=== PATIENT | female | born 1950 | race Caucasian/White ===

== ENCOUNTER 2016-07-27 07:25 | Emergency (ER) | payer OTHER ==
[~2016-07-27] VITALS: Ht 165.1 cm; Wt 100.5 kg
[~2016-07-27 07:25] MED LIST: CIPR500T4 PO; METH4PAK PO; ZOFR4TAB3 PO
[2016-07-27 07:35] VITALS: BP 142/88; PULSE 90; RESP 16; TEMP 97.8; O2SAT 98
[2016-07-27] MEDS ORDERED: PROPARACAINE HCL 0.5% OPHT SOLN 15 ML BTL EACH EYE ONE (08:00)
[2016-07-27] MEDS ORDERED: FLUORESCEIN SOD 1 MG STRIP LEFT EYE ONE (08:00)
[2016-07-27] MEDS ORDERED: VALT500T PO (08:08)
--- NOTE | 2016-07-27 08:10 | PD ---
HPI Chief Complaint: Eye Problems/Injury Time Seen by Provider: 07:36 Travel History International Travel<30 days: No Contact w/Intl Traveler<30days: No Traveled to known affect area: No History of Present Illness HPI 66-year-old female: The patient has had about 2 days of left eyelid pain swelling. 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 She took Valtrex. She thinks she might have a chalazion however wanted to be sure she does not have herpes ophthalmicus. She has been applying hot compresses. He seemed to help a little bit. She noticed minimal purulent discharge along the medial canthus yesterday and this morning. Mild pain is present. PFSH Past Medical History Blood Disorders: No Heart Rhythm Problems: No Cancer: No Cardiac Catheterization: No Cardiovascular Problems: Yes High Cholesterol: Yes Chest Pain: Yes Congestive Heart Failure: No Diabetes: No Endocrine: No Immune Disorder: No Implanted Vascular Access Dvce: Yes Musculoskeletal: Yes (ARTHRITIS) Neurologic: No Psychiatric: No Reproductive: No Respiratory: No Immunizations Current: Yes Menopausal: Yes Past Surgical History Body Medical Devices: BILATERAL HIP- TITANIUM WITH SILICONE LININGS Coronary Artery Bypass Graft: No Joint Replacement: Yes (bilat hip) Other Surgery: Yes (BILATERAL TOTAL HIP ARTHROPLASTY) Social History Alcohol Use: Yes (beer or wine couple times a week) Tobacco Use: No Substance Use: No Allergies-Medications (Allergen,Severity, Reaction): Coded Allergies: Cipro (Verified Allergy, Mild, rash, 12/17/13) Flagyl (Verified Allergy, Mild, itching, 12/17/13) Reported Meds & Prescriptions Reported Meds & Active Scripts Active Reported Valtrex (Valacyclovir HCl) 500 Mg Tab 500 Mg PO DAILY Physical Exam Narrative GENERAL: SKIN: Warm and dry. HEAD: Normocephalic. EYES: No scleral icterus. No injection or drainage. Left upper eyelid is erythematous and upon unfolding the left upper eyelid there is about a 2 mm white focus medial half of the lid consistent with a chalazion. Sclerae white. There is no proptosis. Extraocular muscles are normal. The fluoresceine stain of the left eye reveals no ulceration or disruptive corneal lesion. FACE: The left upper lip shows a 3 mm cluster of blister like lesions consistent with HSV rash. NECK: Supple, trachea midline. No JVD or lymphadenopathy. BACK: Nontender without obvious deformity. No CVA tenderness. Data Data Last Documented VS Vital Signs Date Time Temp Pulse Resp B/P Pulse Ox O2 Delivery O2 Flow Rate FiO2 07/27/16 07:35 97.8 90 16 142/88 98 VS reviewed Orders Fluorescein Strip (Lumam-J-Mjzely A.T.) (07/27/16 08:00) Proparacaine 0.5% Opth Soln (Alcaine 0.5 (07/27/16 08:00) MDM Medical Decision Making Medical Screen Exam Complete: Yes Emergency Medical Condition: Yes Differential Diagnosis chalazion, blepharitis, conjunctivits, herpetic infestation of the Narrative Course Patient has a left upper eyelid chalazion. There is is no conjunctivitis. There is no ulceration or disruption of the cornea. Continue hot compresses. Follow-up with ophthalmology. Diagnosis Primary Impression: Chalazion left upper eyelid Referrals: Brigitte Linda MD 2 days Additional Instructions: You have a choice when it comes to health care, and we are glad that you chose [facility]. Hopefully, we have met your expectations on today's visit. You are welcome to return to [facility] at any time, as we are committed to meeting the health care needs of our community. Med/Other Pt SpecificInfo: No Change to Meds Disposition: 01 DISCHARGE HOME Condition: Stable Amos Terry MD Jul 27, 2016 08:10
== END 2016-07-27 08:29 | disposition home or self-care (01) ==
LOC: PHEFT 07:25
DX: H00.14 Chalazion left upper eyelid (principal); E78.00 Pure hypercholesterolemia, unspecified
CPT/HCPCS: 99283

== ENCOUNTER 2018-04-06 07:29 | Inpatient (IN) ==
[2018-04-06] MEDS ORDERED: Sodium Chlor 0.9% Inj 500 ML IV.CONT ONE (08:00)
[2018-04-06] MEDS ORDERED: Metoprolol Tartrate 25 MG Tablet PO ONE (08:00)
[2018-04-06] MEDS ORDERED: Chlorhexidine 4% Topical 120 APPLIC/120 ML Bottle TOPICAL SCH (08:00)
[2018-04-06] MEDS ORDERED: Vancomycin Inj 1,000 MG in Sodium Chlor 0.9% Inj 250 ML IV.SIG SCH (08:00)
[2018-04-06] MEDS ORDERED: ceFAZolin 2 GM Premix Inj 2 GM/50 ML PIGGYBACK IV.SIG SCH (08:00)
[2018-04-06] MEDS ORDERED: Chlorhexidine Gluconate 2% 1 Pack (2 Cloths) TOPICAL ONE (08:00)
[2018-04-06] MEDS ORDERED: Bupivacaine Liposomal PF 1.3% Inj 20 ML Vial ONE (08:27)
[2018-04-06] MEDS ORDERED: SODIUM CHLOR 0.9% IV.SIG SCH (09:00)
[2018-04-06] MEDS ORDERED: Sodium Chlor 0.9% Inj 40 ML, Bupivacaine Liposo PF 1.3% Inj 20 ML, Bupivacaine/Epi PF 0... P-ARTICULR SCH ×3 (09:00)
[2018-04-06] MEDS ORDERED: TRANEXAMIC ACID IV.SIG SCH (09:00)
[2018-04-06] MEDS ORDERED: Post-op Orders (for Pharmacy) OTHER STA (10:24)
[2018-04-06] MEDS ORDERED: Bisacodyl 10 MG Supp RECTAL PRN (10:24)
[2018-04-06] MEDS ORDERED: Morphine Inj 4 MG/ML Vial IV.PUSH PRN (10:24)
[2018-04-06] MEDS ORDERED: Temazepam 15 MG Capsule PO PRN (10:24)
--- NOTE | 2018-04-06 12:15 | P.OP ---
- Preoperative Diagnosis (1) Osteoarthritis of right knee - Postoperative Diagnosis (1) Osteoarthritis of right knee Date of procedure: 04/06/18 Procedure: Right total knee arthroplasty Anesthesia: GETA, regional, local Surgeon: Manoj Quiñones MD Slot Manager: Veda Rollins PA-C Operation and Findings: EBL: 100 cc INDICATION: This patient presents with long-standing arthritis of the knee. Attachment record documents conservative measures. The patient now presents for surgical treatment. NOTE: Veda Rollins PA-C was present for the entire surgical procedure as my litigation assistant. In my medical opinion her skill and care was necessary for proper management of this patient. TOURNIQUET TIME: 56 minutes COMPANY: [employer] FEMUR: Size 6, cruciate retaining TIBIA: Size 5, fixed-bearing PATELLA: 32 mm POLYETHYLENE INSERT: Kinematic retaining, 14 mm PROCEDURE: This patient was brought the operating room and anesthetized in the supine position. The patient was positioned supine on the table. The tourniquet was placed about the thigh, and the leg was scrubbed with alcohol followed by Hibiclens followed by ChloraPrep and draped sterilely. A timeout was done, and antibiotics were given. After exsanguination the tourniquet was inflated to 250 mmHg. An anterior incision was made and a median parapatellar arthrotomy was performed. The patella was released laterally and subluxed allowing freehand cut of the patella which was then sized. A metal cap was placed over the exposed patellar surface for protection. A commercial helicopter pilot hole was placed in the distal femur allowing a 3 valgus cut removing 10 mm from the distal femur. Anterior posterior and chamfer cuts were made. The attention was directed to the tibia. Retractors were positioned. The external alignment guide was used allowing the lateral tibia to be used as referencing guide and cut utilizing an oscillating saw taking care to avoid any injury to the surrounding soft tissues. This was sized properly. Trial reduction showed that the insert fit nicely. The patient had range of motion extension 0 flexion 125. A medial release was not necessary. There was mild laxity of the medial collateral ligament. The bony surfaces prepared. On the back table 2 packets of methylmethacrylate were mixed. The components were cemented. Excess cement was removed. The tourniquet let down and hemostasis was controlled. The final plastic insert was inserted. Range of motion was the same as previously noted. The arthrotomy was repaired with interrupted #1 Vicryl suture, subcutaneous tissue 2-0 Vicryl suture and skin with metallic bautista A sterile dressing was applied. Sponge counts, needle counts and instrument counts were all correct. The patient tolerated procedure well and was taken to recovery in satisfactory condition. FINDINGS: There was mild laxity of the MCL. We reconstructed this with a 14 mm plastic which gave satisfactory stability. There is no complication that was appreciated.
[2018-04-06] MEDS ORDERED: fentaNYL Citrate Inj 100 MCG/2 ML Ampul ONE ×2 (12:44)
[2018-04-06] MEDS ORDERED: *morphine SULFATE 10 MG/ML PERIprocedure ONLY ONE ×2 (12:50→13:59)
--- NOTE | 2018-04-06 13:18 | XR ---
EXAM DATE: 04/06/2018 1:15 PM EST AGE/SEX: 68 years / Female INDICATIONS: Post op right knee surgery. CLINICAL DATA: This is the patient's initial encounter. Patient reports that signs and symptoms have been present for 1 day and indicates a pain score of 9/10. MEDICAL/SURGICAL HISTORY: None. None. COMPARISON: No prior exams available for comparison. FINDINGS: Right total knee arthroplasty has been performed. The prosthesis appears to be in good position. CONCLUSION: Status post right total knee arthroplasty with prosthesis in good position. Electronically signed by: Jason Gerardo MD Board Certified Radiologist 04/06/2018 1:17 PM EST
[2018-04-06] MEDS ORDERED: ceFAZolin 2 GM Premix Inj 2 GM/50 ML PIGGYBACK IV.SIG ONE (13:22)
--- NOTE | 2018-04-06 14:44 | P.DCO ---
- Physical Therapy Physical Therapy: Gait training (3 times per week for 2 weeks) Knee: Total knee, Protocol: Left, Full weight bearing Left Lower Extremity Weight Bearing: Weight bearing as tolerated - Certification Need for Home Health services: I have seen patient Yanira Olivia on 04/06/18. My clinical findings support the need for the requested home health care services because: Need for Home Health Services: High risk of falls Homebound Certification: I certify that my clinical findings support that this patient is homebound because: Homebound Certification: Unsteady gait/balance
[2018-04-06] MEDS: ceFAZolin Inj 1 GM in Sodium Chlor 0.9% Inj 100 ML IV.SIG SCH ×2 (15:58→21:53)
[2018-04-06] MEDS: Senna/Docusate Sodium 8.6/50 MG Tablet PO SCH ×2 (19:46→22:33)
[2018-04-06] MEDS: Multivitamin/Minerals Therapeutic Tablet PO SCH ×2 (19:47→22:34)
--- NOTE | 2018-04-06 21:55 | P.DS ---
Date of admission: 04/06/18 07:29 Primary care physician: Osbaldo Muniz DO Attending physician on discharge: Manoj Quiñones Anticipated date of discharge: 04/07/18 Brief History from admission: Ms. Olivia has had ongoing right knee pain for... DS: Diagnosis - Discharge Diagnosis (1) Osteoarthritis of right knee Status: Acute DS: Medications - Discharge Medications Prescriptions: aspirin 81 mg PO BID 30 Days #60 tab hydrocodone-acetaminophen 1 tab PO Q4H PRN #42 tab PRN Reason: Acute Pain DS: Summary - Time Spent with Patient Total time spent providing and/or coordinating discharge services: - Quality: VTE Deep Vein Thrombosis/Pulmonary Embolism Present on Admission: No Exam Vital signs: Vital Signs 04/06/18 07:50 04/06/18 08:09 04/06/18 12:34 Temperature 97.6 F 98.2 F Pulse Rate 75 73 79 Respiratory Rate 20 16 Blood Pressure 144/74 H 151/63 H Pulse Oximetry 98 100 96 04/06/18 12:38 04/06/18 12:45 04/06/18 13:00 Temperature Pulse Rate 70 67 Respiratory Rate 16 11 L Blood Pressure 126/60 120/73 Pulse Oximetry 96 98 99 04/06/18 13:15 04/06/18 13:30 04/06/18 13:45 Temperature 98.4 F Pulse Rate 65 64 68 Respiratory Rate 12 14 11 L Blood Pressure 128/62 118/59 L Pulse Oximetry 98 98 97 04/06/18 14:00 04/06/18 16:00 04/06/18 17:43 Temperature 98.5 F Pulse Rate 65 68 74 Respiratory Rate 16 14 16 Blood Pressure 131/61 111/56 L 108/60 Pulse Oximetry 95 98 98 04/06/18 18:00 Temperature 97.4 F L Pulse Rate 68 Respiratory Rate 20 Blood Pressure 116/62 Pulse Oximetry 97 Intake & Output 04/06/18 04/06/18 04/07/18 06:59 18:59 06:59 Intake Total 100 / 100 Output Total 400 / 400 Balance -300 / -300 Weight 103.1 kg Intake: IV 100 / 100 Ancef Inj 1 GM In NS Inj 100 ML 100 / 100 @ 200 mls/hr IV.SIG Q6H YOANDY Rx #:[id number] Output: Urine 400 / 400 Other: Weight On Admission 103.1 kg Results Procedures completed during hospitalization: Right total knee arthroplasty Labs on day of discharge: Labs from last 24 hours 04/06/18 08:02 Blood Type A Negative Blood Type Recheck Required Antibody Screen Negative - Impressions ITS Impressions Knee X-Ray 04/06/18 10:25 CONCLUSION: Status post right total knee arthroplasty with prosthesis in good position. Discharge Plan - Discharge Disposition Patient Disposition: Discharge Home - Discharge Condition Condition: Good - Discharge Order Discharge Orders: Discharge Order (Routine); Ordered 04/06/18 Ordered By: Manoj Quiñones - Physicians Team Primary Care Provider: Osbaldo Muniz Attending Provider: Manoj Quiñones - Rxs /Orders / Referrals /Forms Prescriptions: New aspirin 81 mg Tablet,Chewable 81 mg PO BID 30 Days Qty: 60 RF: 0 hydrocodone-acetaminophen 7.5-325 mg Tablet 1 tab PO Q4H PRN (Reason: Acute Pain) Qty: 42 RF: 0 Continue diclofenac sodium 75 mg Tablet,Delayed Release (Dr/Ec) 75 mg PO DAILY Ambulatory Orders / Order Sets / DME: Adjustable Commode 3-in-1 (1 each) (Routine) Location: Determined by Patient Ordered By: Manoj Quiñones Walker With Front Wheels (1 each) (Routine) Location: Determined by Patient Ordered By: Manoj Quiñones Referrals: Osbaldo Muniz DO [Primary Care Provider] - See Instructions - Discharge Instructions Patient Printed Instructions: Knee Replacement (DC) - Post Discharge Care Plan Care Plan Goals: Discharge Care Plan Goals for RIGHT Total Knee Replacement You have undergone knee replacement surgery. Your doctor replaced your painful joint with an artificial joint to relieve pain and restore movement. Here are some goals to help you heal well. Directions to Meet your Goals: 1. Activity & Exercises: * Take pain medicine as directed by your doctor. * Sit in chairs with arms. The arms make it easier for you to stand up or sit down. * Dont sit for more than 30 to 45 minutes at one time. * Nap if you are tired, but dont stay in bed all day. * Sleep with a pillow under your ankle, not your knee. Be sure to change the position of your leg during the night. * Wear the support stockings you were given in the hospital as directed by your surgeon. 2. Prevent Falls/Injury: The kapoor to successful recovery is movement with walking and exercising your knee as directed by your doctor. * Arrange your household to keep the items you need handy. Keep everything else out of the way. * Remove items that may cause you to fall, such as throw rugs and electrical cords. * Use nonslip bath mats, grab bars, an elevated toilet seat, and a shower chair in your bathroom * Sit on a shower stool or chair when you shower to keep from falling. * Until your balance, flexibility, and strength improve, use a cane, crutches, a walker, handrails, or someone to help you. * Keep your hands free by using a backpack, john pack, apron, or pockets to carry things * Walk up and down stairs with support. Try one step at a time. Use the railing if possible. * Dont drive until your doctor says its OK. * Dont drive while you are taking opioid pain medicine. 3. Precautions: * Prevent infection. Any infection will need to be treated immediately. Call your doctor right away if you think you might have an infection. * Tell your dentist that you have an artificial joint and take antibiotics as prescribed before any dental work. * Tell all your healthcare providers about your artificial joint before any medical procedure. * Maintain a healthy weight. Get help to lose any extra pounds. Added body weight puts stress on the knee. * Your medications may include blood-thinning medicine to prevent blood clots or antibiotics to prevent infection-prevent any falls or cuts 4. Incision Care: * Prevent infection by washing your hands often. If an infection occurs, it will need to be treated right away. * Call your doctor right away if you think you may have an infection. Symptoms include a fever or an incision that leaks white, green, or yellow fluid. * Don't soak your incision in water until your doctor says its OK. This means no hot tubs, bathtubs, or swimming pools. * Follow your doctor's instructions for changing the dressing. * Dont rub the incision, or apply creams or lotions to it. * If you notice any redness or drainage around the bandage site, contact your surgeon's office immediately. 5. Follow-Up: Do Not miss your follow-up appointment. Keep up with all your appointments and yearly check ups When to call your doctor: Call your doctor right away if you have: Fever of 100.4F (38C) or higher, or as directed by your doctor Shaking chills Stiffness, or inability to move the knee Increased swelling in your leg Increased redness, tenderness, or swelling in or around the knee incision Drainage from the knee incision Increased knee pain Call 911: Call 911 right away if you have: Chest pain Shortness of breath Any pain or tenderness in your calf
[2018-04-07] MEDS: ceFAZolin Inj 1 GM in Sodium Chlor 0.9% Inj 100 ML IV.SIG SCH (04:39)
[2018-04-07 05:09] LABS: Hematocrit 34.2 % (35.0-46.0); Hemoglobin 11.6 gm/dL (11.6-15.3)
[2018-04-07] MEDS: Multivitamin/Minerals Therapeutic Tablet PO SCH (09:08)
[2018-04-07] MEDS: Senna/Docusate Sodium 8.6/50 MG Tablet PO SCH (09:09)
[2018-04-07 09:15] VITALS: TEMP 97.6
[2018-04-07 12:14] VITALS: BP 126/58; PULSE 77; RESP 17; O2SAT 98
--- NOTE | 2018-04-07 13:54 | P.PNOP ---
Subjective Interval history: Pain well controlled. She did not get much relief from the block after surgery but it has improved today. No other complaints. No CP or SOB. Ready for d/c home today. Physical Exam Vital signs: Vital Signs 04/06/18 14:00 04/06/18 16:00 04/06/18 17:43 Temperature 98.5 F Pulse Rate 65 68 74 Respiratory Rate 16 14 16 Blood Pressure 131/61 111/56 L 108/60 Pulse Oximetry 95 98 98 04/06/18 18:00 04/06/18 20:16 04/06/18 21:22 Temperature 97.4 F L 98.1 F Pulse Rate 68 65 Respiratory Rate 20 18 17 Blood Pressure 116/62 107/55 L Pulse Oximetry 97 95 04/07/18 00:08 04/07/18 00:20 04/07/18 01:04 Temperature 98.4 F Pulse Rate 69 Respiratory Rate 16 18 17 Blood Pressure 117/61 Pulse Oximetry 94 L 04/07/18 04:35 04/07/18 05:53 04/07/18 07:50 Temperature 98.0 F 97.6 F Pulse Rate 65 66 Respiratory Rate 17 18 18 Blood Pressure 113/58 L 102/54 L Pulse Oximetry 96 94 L 04/07/18 11:32 Temperature Pulse Rate 77 Respiratory Rate 17 Blood Pressure 126/58 L Pulse Oximetry 98 Intake & Output 04/06/18 04/07/18 04/07/18 18:59 06:59 18:59 Intake Total 100 / 100 920 / 920 Output Total 400 / 400 Balance -300 / -300 920 / 920 Weight 103.1 kg 105 kg Intake: IV 100 / 100 200 / 200 Ancef Inj 1 GM In NS Inj 100 ML 100 / 100 200 / 200 @ 200 mls/hr IV.SIG Q6H YOANDY Rx #:[id number] Oral 720 / 720 Output: Urine 400 / 400 Other: # Voids 3 Date of Last Bowel Movement 04/05/18 04/05/18 # Bowel Movements 0 Weight On Admission 103.1 kg Narrative: Sitting up in bed NAD With RLE Knee dressing intact, mild drainage distal, no erythema, mild swelling +motor at, +sens, +nvi Neg homans - Constitutional no acute distress Results - Labs CBC & Chem 7: 04/07/18 04:52 Laboratory Results - last 24 hr 04/07/18 04:52 Hgb 11.6 Hct 34.2 L - Procedures Right total knee arthroplasty Assessment and Plan - Ortho Post Op Day # 1 - Problem List (1) Osteoarthritis of right knee Code(s): M17.11 - Unilateral primary osteoarthritis, right knee Status: Acute - Assessment and Plan pod#1 s/p R TKA Ortho stable. Doing well. Ok to d/c home w c after PT class today. PO pain control as needed. ASA 81mg bid. Hold dressing changes unless saturated. PT - WBAT RLE. TKA protocol. CKS when in bed. Ice bid as tolerated. Compression stockings bilaterally for 2 weeks. Follow up in 2 weeks as scheduled.
== END 2018-04-07 14:53 | disposition home health service (06) | DRG 470 ==
LOC: HSDI 07:29 → N06 18:02
PROVIDERS: ADMIT Orthopaedic Surgery Orthopaedic Surgery of the Spine; ATTEND Orthopaedic Surgery Orthopaedic Surgery of the Spine
CPT/HCPCS: 73560; 85014; 85018; 86850; 86900; 86901; 94150; 97110; 97116; 97150; 97162; C1776; C9290; J0690; J2250; J2270; J3010; J3370; J7050; J7120; L1830